=== PATIENT | female | born 1965 | race Caucasian/White ===

== ENCOUNTER → 2016-08-04 | Outpatient (CLI) | payer BC ==
[2016-08-04 12:32] LABS: Basophils % (A) 1 %; CH 30.5; CHCM 32.2; Eosinophils # (A) 0.1 k/uL (0-0.7); Eosinophils % (A) 1 %; HCT 46.9 % (34.0-46.0); HDW 2.51; HGB 14.9 gm/dL (11.4-16.0); Luc # (Auto) 0.18; Luc % (Auto) 2; Lymphocytes # (A) 1.2 k/uL (1.0-4.8); Lymphocytes % (A) 15 %; MCH 30.1 pg (25.0-35.0); MCHC 31.8 g/dL (31.0-37.0); MCV 94.4 fL (80.0-100.0); Mean Platelet Volume 7.6; Monocytes # (A) 0.4 k/uL (0-1.0); Monocytes % (A) 5 %; Neutrophils # (A) 6.3 k/uL (1.3-7.7); Neutrophils % (A) 77 %; RBC 4.96 m/uL (3.80-5.40); RDW 15.1 % (11.5-15.5); WBC 8.2 k/uL (3.8-10.6); WBC (Perox) 8.31
== END | disposition home or self-care (01) ==
LOC: LABPAT 12:15
PROVIDERS: ATTEND Obstetrics & Gynecology
DX: Z01.812 Encounter for preprocedural laboratory examination (principal)
CPT/HCPCS: 36415; 85025

== ENCOUNTER 2016-08-12 06:37 | Day surgery (SDC) | payer BC ==
[2016-08-09 11:45] VITALS: BMI 23.0
--- NOTE | 2016-08-11 20:19 | P.HPOB ---
History of Present Illness H&P Date: 08/11/16 Chief Complaint: Dysfunctional uterine bleeding This is a 45 y.o. female, 2, para 2, who presents for dilatation and curettage with hysteroscopy, and Novasure endometrial ablation due to dysfunctional uterine bleeding. She bled from mid-February until mid-May. She would bleed through 2 tampons in 45 minutes. Previously her menses were regular, but would last 7-8 days and heavier with clots over the last few years. Her pelvic ultrasound showed uterus measuring 13.7 x 5.7 x 6.8 cm with several fibroids, the largest of which was 3.4 cm on the left side. Endometrial thickness was 15 mm and she did have a 2.6 cm cyst on her left ovary. She would like definitive surgical treatment to control her bleeding. She is aware that the Novasure may not ablate her entire lining due to the size of her uterus. OB Hx: . History of 2 deliveries [employer] Hx: No history of STDs. Partner has a vasectomy. Social Hx: , but steady partner for years. Works in a [employer]. Review of Systems Constitutional: Reports fatigue Gastrointestinal: Reports heartburn Genitourinary: Reports dysmenorrhea, Reports menorrhagia Menstruation: Reports menses 8 or > days, Reports menses variable, Reports period heavy Neurological: Denies numbness, Denies weakness Psychiatric: Denies anxiety, Denies depression Past Medical History Past Medical History: GERD/Reflux Additional Past Medical History / Comment(s): ENVIRONMENTAL ALLERGIES, MENORRHAGIA WITH ANEMIA. History of Any Multi-Drug Resistant Organisms: None Reported Past Surgical History: Appendectomy, Section (x2) Past Anesthesia/Blood Transfusion Reactions: Postoperative Nausea & Vomiting ( PONV) Past Psychological History: No Psychological Hx Reported Smoking Status: Never smoker Past Alcohol Use History: Daily Additional Past Alcohol Use History / Comment(s): DRINKS 1-2 GLASSES OF WINE DAILY. Past Drug Use History: None Reported - Past Family History Father Family Medical History: Coronary Artery Disease (CAD) Additional Family Medical History / Comment(s): OPEN HEART SURGERY. Medications and Allergies Home Medications Medication Instructions Recorded Confirmed Type Gluc/Oscar-MSM#1/C/Jovanny/King/Bor 1 each PO DAILY 08/09/16 08/09/16 History [Glucosamine-Chondroitin Tablet] Ibuprofen [Motrin] 200 - 600 mg PO Q6HR PRN 08/09/16 08/09/16 History Iron (Unknown Dose) 1 tab PO BID 08/09/16 08/09/16 History Montelukast [Singulair] 10 mg PO HS 08/09/16 08/09/16 History Multivitamins, Thera [Multivitamin] 1 tab PO DAILY 08/09/16 08/09/16 History Omeprazole 20 mg PO DAILY 08/09/16 08/09/16 History Vitamin D (Unknown Dose) 1 tab PO DAILY 08/09/16 08/09/16 History Zyrtec(Unknown Dose) 1 tab PO DAILY 08/09/16 08/09/16 History Allergies Allergy/AdvReac Type Severity Reaction Status Date / Time benzoyl peroxide Allergy Unknown EYES Verified 08/09/16 11:28 SWOLLEN SHUT. Exam Osteopathic Statement: *. No significant issues noted on an osteopathic structural exam other than those noted in the History and Physical/Consult. HEENT: within normal limits Heart: regular rate and rhythm Lungs: clear to auscultation bilaterally Abdomen: soft, non-tender Pelvic: Uterus mid-position, sl. enlarged, nodular, non-tender with no palpable adnexal masses or tenderness Extremities: neg. Miguelito's. Assessment and Plan (1) Dysfunctional uterine bleeding Status: Acute Plan: Proceed with dilatation and curettage with hysteroscopy and Novasure endometrial ablation. I have discussed the risks, benefits, and alternative therapies for the above- mentioned procedure and for both sedation/anesthesia as well as necessary blood products administration, if indicated, as they pertain to this patient. The patient has indicated her understanding and acceptance of the risks and procedures discussed.
[~2016-08-12 06:37] MED LIST: DEXAMETHASONE SOD PHOSPHATE 10 MG/ML 1 ML VIAL IV ONE; HYDROmorphone 1 MG/ML 1 ML SYRINGE IVP PRN; LACTATED RINGERS 1,000 ML IV SCH; MIDAZOLAM 2 MG/2 ML VIAL IV PRN; ONDANSETRON 4 MG/2 ML VIAL IVP ONE; Pre Op ABX Message 1 EACH MISC MISCELLANE ONE; SCOPOLAMINE 1.5MG/72HR PATCH TRANSDERM ONE
[2016-08-12 06:57] VITALS: RESP 16
[2016-08-12] MEDS ORDERED: LIDOCAINE 1% 20 ML VIAL (10MG/ML) FOR IV START INTRADERMA ONE (06:58)
[2016-08-12] MEDS ORDERED: LIDOCAINE 1% INJ 10MG/ML (20 ML MDV) ONE (07:37)
[2016-08-12] MEDS ORDERED: PROPOFOL 10 MG/ML 20 ML VIAL IV ONE (07:37)
[2016-08-12] MEDS ORDERED: KETOROLAC 30 MG/ML 1 ML VIAL ONE (07:37)
[2016-08-12] MEDS ORDERED: MIDAZOLAM 2 MG/2 ML VIAL ONE (07:37)
[2016-08-12] MEDS ORDERED: fentaNYL (PF) 50 MCG/ML 2 ML AMP ONE (07:37)
[2016-08-12 08:11] VITALS: TEMP 97
[2016-08-12 09:01] VITALS: BP 154/83; PULSE 60
--- NOTE | 2016-08-12 14:08 | P.OP ---
Date of Procedure: 08/12/16 Preoperative Diagnosis: Dysfunctional uterine bleeding Postoperative Diagnosis: Same Procedure(s) Performed: Hysteroscopy, dilatation and curettage, Novasure endometrial ablation Anesthesia: NEENA Surgeon: Traci Sal Estimated Blood Loss (ml): 5 Pathology: other (endometrial curettings) Condition: stable Disposition: same day Indications for Procedure: This is a 45 y.o. female, 2, para 2, who presents for dilatation and curettage with hysteroscopy, and Novasure endometrial ablation due to dysfunctional uterine bleeding. She bled from mid-February until mid-May. She would bleed through 2 tampons in 45 minutes. Previously her menses were regular, but would last 7-8 days and heavier with clots over the last few years. Her pelvic ultrasound showed uterus measuring 13.7 x 5.7 x 6.8 cm with several fibroids, the largest of which was 3.4 cm on the left side. Endometrial thickness was 15 mm and she did have a 2.6 cm cyst on her left ovary. She would like definitive surgical treatment to control her bleeding. She is aware that the Novasure may not ablate her entire lining due to the size of her uterus. Operative Findings: Uterus mid-position with no adnexal masses. Upon hysteroscopy, a dyssynchronous pattern was noted. A moderate amount of uterine curettings were noted. Uterus is sounded to 13 cm. Cervix is sounded to 3 cm. Description of Procedure: The patient is taken to the operating room. She is placed in the dorsal lithotomy position after general anesthesia was given. She is prepped and draped in the normal sterile fashion. Bladder is drained with a catheter and then removed. Pelvic exam is performed under anesthesia. Uterus is found to be mid position with no adnexal masses. She is placed in slight Trendelenburg position. A right angle retractor is used to visualize the cervix. The anterior lip of the cervix is grasped with a single-tooth tenaculum. Cervix is sounded to 3 cm. Uterus is sounded to 13 cm. Cervix is gently dilated with Mensah dilators until a hysteroscope could be passed. Hysteroscopy is performed using normal saline. The above noted findings are noted. Next a polyp forceps is introduced. A minimal amount of tissue was obtained. Next medium-sized size sharp curette was placed. A moderate amount of endometrial curettings were obtained. Next NovaSure array was inserted into the endometrial cavity. Length was set at 6.5 cm and width was determined to be 4.5 cm. Next cavity assessment was completed and passed on the first try. Next NovaSure array was fired at 161 W for 105 seconds. Next the array was removed, inspected and then discarded. Next the hysteroscope was reinserted. Uniform charring was noted. Pictures were taken. Hysteroscope was removed. Single-tooth tenaculum was removed from the anterior lip of the cervix. Minimal bleeding was noted. All other instruments removed from the vagina. Sponge counts were correct. Patient is taken to recovery room in stable condition.
== END 2016-08-12 09:23 | disposition home or self-care (01) ==
LOC: OR 06:37
PROVIDERS: ATTEND Obstetrics & Gynecology
DX: N84.0 Polyp of corpus uteri (principal); N93.8 Other specified abnormal uterine and vaginal bleeding; D25.9 Leiomyoma of uterus, unspecified; N83.202 Unspecified ovarian cyst, left side; N92.0 Excessive and frequent menstruation with regular cycle; D64.9 Anemia, unspecified; J30.2 Other seasonal allergic rhinitis; K21.9 Gastro-esophageal reflux disease without esophagitis; Z79.1 Long term (current) use of non-steroidal anti-inflammatories (NSAID); Z79.899 Other long term (current) drug therapy; Z88.8 Allergy status to other drugs, medicaments and biological substances
CPT/HCPCS: 81025; 88305; 58563; J2250; J1100; J2405; J2001; J3010; J1885; J2704

== ENCOUNTER → 2018-02-21 | Outpatient (CLI) | payer BC ==
[2018-02-21 16:45] LABS: Basophils % (A) 1 %; Eosinophils # (A) 0.1 k/uL (0-0.7); Eosinophils % (A) 1 %; HGB 13.7 gm/dL (11.4-16.0); Lymphocytes # (A) 1.1 k/uL (1.0-4.8); Lymphocytes % (A) 23 %; MCH 28.1 pg (25.0-35.0); MCHC 31.1 g/dL (31.0-37.0); MCV 90.3 fL (80.0-100.0); Mean Platelet Volume 7.4; Monocytes # (A) 0.3 k/uL (0-1.0); Monocytes % (A) 6 %; Neutrophils # (A) 3.2 k/uL (1.3-7.7); Neutrophils % (A) 67 %; Platelet Count 231 k/uL (150-450); RBC 4.87 m/uL (3.80-5.40); RDW 14.4 % (11.5-15.5); WBC 4.8 k/uL (3.8-10.6)
[2018-02-22 04:53] LABS: Gliadin AB IgA, Unit 1.8 U/mL
[2018-02-22 05:18] LABS: Codfish IgE <0.10 kU/L; Peanut IgE <0.10 kU/L; Soybean IgE <0.10 kU/L; Walnut IgE (Food) <0.10 kU/L
[2018-02-22 05:19] LABS: Egg White IgE <0.10 kU/L
--- NOTE | 2018-02-22 09:06 | XR ---
EXAMINATION TYPE: XR chest 2V DATE OF EXAM: 02/21/2018 COMPARISON: 08/11/2015 TECHNIQUE: PA and lateral views submitted. HISTORY: Cough FINDINGS: The lungs are clear and there is no pneumothorax, pleural effusion, or focal pneumonia. Hypertrophic change of the spine noted. IMPRESSION: 1. No acute process.
[2018-02-22 11:33] LABS: Almond IgE <0.35 kU/L (<0.35); Almond IgE Class CLASS 0; Hazelnut IgE <0.35 kU/L (<0.35); Hazelnut IgE Class CLASS 0; Pecan IgE <0.35 kU/L (<0.35); Pecan IgE Class CLASS 0
[2018-02-22 11:35] LABS: Pistachio IgE Class CLASS 0; Tuna IgE <0.35 kU/L (<0.35); Tuna IgE Class CLASS 0
[2018-02-22 11:36] LABS: Salmon IgE <0.35 kU/L (<0.35); Salmon IgE Class CLASS 0
== END | disposition home or self-care (01) ==
LOC: RADXRMAIN 16:03
PROVIDERS: ATTEND Allergy & Immunology
DX: K21.9 Gastro-esophageal reflux disease without esophagitis (principal); R05 Cough; Z91.018 Allergy to other foods
CPT/HCPCS: 71046; 82784; 83516; 85025; 86003

== ENCOUNTER 2018-10-24 08:34 | Day surgery (SDC) | payer BC ==
[2018-10-19 10:07] VITALS: BMI 23.0
--- NOTE | 2018-10-24 07:57 | P.GSHP ---
History of Present Illness H&P Date: 10/24/18 CHIEF COMPLAINT: Colon screen HISTORY OF PRESENT ILLNESS: The patient is a 53-year-old female who presents for colon screen. Lower endoscopy was offered for further evaluation and management. PAST MEDICAL HISTORY: Please see list. PAST SURGICAL HISTORY: Please see list. MEDICATIONS: Please see list. ALLERGIES: Please see list. SOCIAL HISTORY: No illicit drug use FAMILY HISTORY: No reports of Crohn disease or ulcerative colitis. REVIEW OF ORGAN SYSTEMS: CONSTITUTIONAL: No reports of fevers or chills. PHYSICAL EXAM: VITAL SIGNS: Stable GENERAL: Well-developed pleasant in no acute distress. HEENT: No scleral icterus. Extraocular movements grossly intact. Moist buccal mucosa. NECK: Supple without lymphadenopathy. CHEST: Unlabored respirations. Equal bilateral excursions. CARDIOVASCULAR: Regular rate and rhythm. Distal 2+ pulses. ABDOMEN: Soft, nontender, nondistended. MUSCULOSKELETAL: No clubbing, cyanosis, or edema. ASSESSMENT: 1. Colon screen. PLAN: 1. Recommend proceeding with a lower endoscopy Past Medical History Past Medical History: GERD/Reflux, Hypertension Additional Past Medical History / Comment(s): SEASONAL ALLERGIES History of Any Multi-Drug Resistant Organisms: None Reported Past Surgical History: Appendectomy, Section, Uterine Ablation Additional Past Surgical History / Comment(s): C-SEC X 2 Past Anesthesia/Blood Transfusion Reactions: Postoperative Nausea & Vomiting (PONV) Smoking Status: Never smoker - Past Family History Mother Family Medical History: No Reported History Medications and Allergies Home Medications Medication Instructions Recorded Confirmed Type Montelukast [Singulair] 10 mg PO HS 08/09/16 10/19/18 History Omeprazole 20 mg PO BID 08/09/16 10/19/18 History Cholecalciferol [Vitamin D3 (25 2,000 unit PO DAILY 10/19/18 10/19/18 History Mcg = 1000 Iu)] Hydrochlorothiazide 25 mg PO DAILY 10/19/18 10/19/18 History L.acidoph,Paracasei, B.lactis 1 each PO DAILY 10/19/18 10/19/18 History [Probiotic] Loratadine [Claritin] 10 mg PO DAILY 10/19/18 10/19/18 History Ranitidine HCl 300 mg PO HS 10/19/18 10/19/18 History Allergies Allergy/AdvReac Type Severity Reaction Status Date / Time benzoyl peroxide Allergy Unknown EYES Verified 10/19/18 09:51 SWOLLEN SHUT. corn Allergy Abdominal Verified 10/19/18 09:51 Pain
[~2018-10-24 08:34] MED LIST changes: -DEXAMETHASONE SOD PHOSPHATE 10 MG/ML 1 ML VIAL IV ONE; -HYDROmorphone 1 MG/ML 1 ML SYRINGE IVP PRN; +LIDOCAINE 1% 20 ML VIAL (10MG/ML) FOR IV START INTRADERMA PRN; -MIDAZOLAM 2 MG/2 ML VIAL IV PRN; -ONDANSETRON 4 MG/2 ML VIAL IVP ONE; -Pre Op ABX Message 1 EACH MISC MISCELLANE ONE; -SCOPOLAMINE 1.5MG/72HR PATCH TRANSDERM ONE
[2018-10-24 08:55] VITALS: RESP 16; TEMP 98
[2018-10-24] MEDS ORDERED: PROPOFOL 10 MG/ML 20 ML VIAL IV ONE (09:36)
--- NOTE | 2018-10-24 10:03 | P.PCN ---
Description of Procedure: PREOPERATIVE DIAGNOSIS: Colonoscopy screening, initial POSTOPERATIVE DIAGNOSIS: Colonoscopy screening, initial OPERATION: Colonoscopy to the ileocecal valve and appendiceal orifice. SURGEON: Mya Zapien MD. ANESTHESIA: MAC. INDICATIONS: The patient is a 53-year-old female who presents for colonoscopy screening. Benefits and risks were described and informed consent was obtained. DESCRIPTION OF PROCEDURE: The patient had undergone Suprep. She had been brought into the operating room and laid in the left lateral decubitus position. After adequate intravenous sedation, the rectum was examined with 2% lidocaine jelly. No external hemorrhoids were encountered. The rectal tone was within normal limits. No lesions were palpated in the rectal vault. An Olympus colonoscope was advanced until the ileocecal valve and appendiceal orifice were clearly viewed. The prep was excellent with clear visualization of the mucosal folds. The scope was removed with visualization of each mucosal fold. No scattered diverticulosis was encountered. No colonic polyps were found. No evidence of focal colitis was found. Retroflexion of the scope demonstrated no internal hemorrhoids. The colon was desufflated. The patient had tolerated the procedure well. Withdrawal time was over 6 minutes. FINDINGS: Aronchick preparation quality scale 1 (1-5) No internal hemorrhoids No external prolapsed hemorrhoids. No arteriovenous malformations. No adenomatous polyps. No focal colitis. RECOMMENDATIONS: Lower endoscopy in 10 years, 2028 Plan - Discharge Summary Discharge Rx Participant: No New Discharge Prescriptions: No Action Omeprazole 20 mg PO BID Montelukast [Singulair] 10 mg PO HS Ranitidine HCl 300 mg PO HS Cholecalciferol [Vitamin D3 (25 Mcg = 1000 Iu)] 2,000 unit PO DAILY L.acidoph,Paracasei, B.lactis [Probiotic] 1 each PO DAILY Loratadine [Claritin] 10 mg PO DAILY Hydrochlorothiazide 25 mg PO DAILY Discharge Medication List Montelukast [Singulair] 10 mg PO HS 08/09/16 [History] Omeprazole 20 mg PO BID 08/09/16 [History] Cholecalciferol [Vitamin D3 (25 Mcg = 1000 Iu)] 2,000 unit PO DAILY 10/19/18 [History] Hydrochlorothiazide 25 mg PO DAILY 10/19/18 [History] L.acidoph,Paracasei, B.lactis [Probiotic] 1 each PO DAILY 10/19/18 [History] Loratadine [Claritin] 10 mg PO DAILY 10/19/18 [History] Ranitidine HCl 300 mg PO HS 10/19/18 [History] Follow up Appointment(s)/Referral(s): Mya Zapien MD [STAFF PHYSICIAN] - As Needed Patient Instructions/Handouts: *[facility] - (Anesthesia) Endoscopy Discharge Instructions, Colonoscopy (GEN) Activity/Diet/Wound Care/Special Instructions: Repeat colonoscopy in 10 years2028 Discharge Disposition: HOME SELF-CARE
[2018-10-24 10:05] VITALS: PULSE 68
[2018-10-24 10:34] VITALS: BP 143/91
== END 2018-10-24 10:47 | disposition home or self-care (01) ==
LOC: ORWHC2ENDO 08:34
PROVIDERS: ATTEND Surgery Plastic and Reconstructive Surgery
DX: Z12.11 Encounter for screening for malignant neoplasm of colon (principal); K21.9 Gastro-esophageal reflux disease without esophagitis; I10 Essential (primary) hypertension; Z90.49 Acquired absence of other specified parts of digestive tract; J30.2 Other seasonal allergic rhinitis; Z79.899 Other long term (current) drug therapy; Z88.8 Allergy status to other drugs, medicaments and biological substances; Z91.018 Allergy to other foods
CPT/HCPCS: 81025; J2704; G0121

== ENCOUNTER → 2018-11-08 | Outpatient (CLI) | payer BC ==
--- NOTE | 2018-11-09 10:33 | MM ---
Reason for exam: screening (asymptomatic). Last mammogram was performed 3 years and 7 months ago. History: Family history of breast cancer in grandmother at age 55. Physical Findings: A clinical breast exam by your physician is recommended on an annual basis and results should be correlated with mammographic findings. MG 3D Screening Mammo W/Cad Bilateral CC and MLO view(s) were taken. Prior study comparison: April 16, 2015, bilateral MG screening mammo w CAD. January 13, 2006, bilateral screening mammogram w/CAD. The breast tissue is extremely dense which could obscure a lesion on mammography. No suspicious abnormality. No significant changes when compared with prior studies. ASSESSMENT: Negative, BI-RAD 1 RECOMMENDATION: Routine screening mammogram of both breasts in 1 year.
== END | disposition home or self-care (01) ==
LOC: RADMAMWWP 10:11
PROVIDERS: ATTEND Family Medicine
DX: Z12.31 Encounter for screening mammogram for malignant neoplasm of breast (principal)
CPT/HCPCS: 77063; 77067

== ENCOUNTER → 2018-11-15 | Outpatient (CLI) | payer BC ==
--- NOTE | 2018-11-15 12:03 | US ---
EXAMINATION TYPE: US pelvic complete DATE OF EXAM: 11/15/2018 COMPARISON: NONE CLINICAL HISTORY: 53-year-old female R19.00 Intra-abdominal Pelvic Swelling. Intermittent left pelv ic pain, 2, para 2, history of 2 c-sections. TECHNIQUE: Transabdominal sonographic images of the pelvis were acquired. Transvaginal sonographic images were medically necessary to better assess the following anatomy: ovaries and endometrium Date of LMP: 2nd week in September 2018 FINDINGS: EXAM MEASUREMENTS: Uterus: 11.2 x 6.3 x 6.9 cm Endometrial Stripe: 0.8 cm Right Ovary: 3.1 x 2.1 x 2.7 cm Left Ovary: 3.7 x 2.2 x 2.0 cm 1. Uterus: enlarged, heterogeneous, 5.0 x 4.5 x 4.3cm and 3.2 x 2.5 x 3.1cm hypoechoic lesions. There is fluid within the cervical canal with 1.2 x 0.7 x 1.2cm and 0.9 x 0.4 x 0.7cm solid and vascu lar structures seen within 2. Endometrium: limited visualization 3. Right Ovary: 1.9 x 1.3 x 1.6cm cystic area 4. Left Ovary: 2.1 x 1.1 x 1.4cm cystic area 5. Bilateral Adnexa: wnl 6. Posterior cul-de-sac: wnl IMPRESSION: 1. Bulky fibroid uterus with fibroids measuring up to 5.0 cm and 3.2 cm. 2. Fluid in the cervical canal with 2 solid and vascular lesions within the endocervical canal measur ing 1.2 x 1.2 cm and 9 x 7 mm. Small prolapsed pedunculated fibroids are possible. Correlate with Pap smear and direct visualization to exclude neoplasm/cervical cancer. 3. Follicular change in both ovaries.
== END | disposition home or self-care (01) ==
LOC: RADUSWWP 10:05
PROVIDERS: ATTEND Family Medicine
DX: D25.9 Leiomyoma of uterus, unspecified (principal); N88.8 Other specified noninflammatory disorders of cervix uteri
CPT/HCPCS: 76830; 76856

== ENCOUNTER → 2022-02-15 | Outpatient (CLI) | payer BC ==
--- NOTE | 2022-02-16 16:56 | MM ---
Reason for Exam: Screening (asymptomatic). Last mammogram was performed 3 year(s) and 3 month(s) ago. Patient History: Menarche at age 15. First Full-Term at age 27. Maternal grandmother had breast cancer, age 55. Risk Values: Hanny 5 year model risk: 1.3%. NCI Lifetime model risk: 9.3%. Prior Study Comparison: 01/13/2006 Bilateral Screening Mammogram, [facility]. 04/16/2015 Bilateral Screening Mammogram, [facility]. 11/08/2018 Bilateral Screening Mammogram, [facility]. Tissue Density: The breast tissue is heterogeneously dense. This may lower the sensitivity of mammography. Findings: Analyzed By CAD. Pattern appears stable. No suspicious groups of microcalcifications, spiculated or lobular masses, architectural distortion or other secondary signs of malignancy are mammographically apparent. Overall Assessment: Benign, BI-RAD 2 Management: Screening Mammogram of both breasts in 1 year. A negative mammogram report should not preclude additional follow up of suspicious palpable abnormalities. Patient should continue monthly self breast exam. A clinical breast exam by your physician is recommended on an annual basis and results should be correlated with mammographic findings. Electronically signed and approved by: Wilber Coffman D.O. Radiologis
== END | disposition home or self-care (01) ==
LOC: RADMAMWWP 15:09
PROVIDERS: ATTEND Family Medicine
DX: Z12.31 Encounter for screening mammogram for malignant neoplasm of breast (principal); Z80.3 Family history of malignant neoplasm of breast
CPT/HCPCS: 77063; 77067

== ENCOUNTER 2022-10-10 05:47 | Inpatient (IN) | payer BC ==
[2022-10-06 08:33] VITALS: BMI 24.7
--- NOTE | 2022-10-09 08:15 | P.HPOB ---
History of Present Illness H&P Date: 10/09/22 Chief Complaint: Dysfunctional uterine bleeding This is a 57 y.o. female, 2, para 2, with complaints of prolonged heavy bleeding since May 2022. She has tried Provera which took a few weeks to slow her bleeding, but it has now stopped. She does have simple endometrial hyperplasia diagnosed on endometrial biopsy in June of 2022. This was also noted on D&C specimen in 2017 at the time of her endometrial ablation. Her pelvic ultrasound showed uterus measuring 9.7 x 8.5 x 7.6 cm with probable fibroid in posterior uterus measuring up to 4.3 cm. Her left ovary had a 2.8 cm simple cyst. Patient has history of previous endometrial ablation and had no period prior to this since 08/2021. Due to the continued dysfunctional bleeding and simple hyperplasia, the decision is made to proceed with total abdominal hysterectomy with bilateral salpingooophorectomy. OB Hx: . 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 Partner has vasectomy. Social Hx: . Partner for many years. Runs a [employer]. Review of Systems Constitutional: Denies chills, Denies fever Eyes: denies blurred vision, denies pain Ears, nose, mouth and throat: Denies headache, Denies sore throat Cardiovascular: Denies chest pain, Denies shortness of breath Respiratory: Denies cough Gastrointestinal: Reports heartburn, Denies abdominal pain, Denies diarrhea, Denies nausea, Denies vomiting Genitourinary: Reports dysmenorrhea, Reports menorrhagia, Reports pelvic pain, Reports stress incontinence Menstruation: Reports menses 8 or > days, Reports period heavy Musculoskeletal: Reports neck stiffness Integumentary: Denies pruritus, Denies rash Neurological: Denies numbness, Denies weakness Psychiatric: Reports anxiety, Denies depression Endocrine: Reports fatigue, Denies weight change Past Medical History Past Medical History: GERD/Reflux, Hypertension Additional Past Medical History / Comment(s): SEASONAL ALLERGIES. History of Any Multi-Drug Resistant Organisms: None Reported Past Surgical History: Appendectomy, Section, Uterine Ablation Additional Past Surgical History / Comment(s): SECTION X2. D&C Past Anesthesia/Blood Transfusion Reactions: Postoperative Nausea & Vomiting (PONV) Additional Past Anesthesia/Blood Transfusion Reaction / Comment(s): PONV after appendectomy only. Past Psychological History: Anxiety Smoking Status: Never smoker Past Alcohol Use History: Daily Additional Past Alcohol Use History / Comment(s): DRINKS ONE GLASS OF WINE DAILY. Past Drug Use History: None Reported - Past Family History Mother Family Medical History: No Reported History Father Family Medical History: Coronary Artery Disease (CAD), Hypertension Medications and Allergies Home Medications Medication Instructions Recorded Confirmed Type Montelukast [Singulair] 10 mg PO HS 08/09/16 10/24/18 History Omeprazole 20 mg PO BID 08/09/16 10/24/18 History Cholecalciferol [Vitamin D3 (25 2,000 unit PO DAILY 10/19/18 10/24/18 History Mcg = 1000 Iu)] L.acidoph,Paracasei, B.lactis 1 each PO DAILY 10/19/18 10/24/18 History [Probiotic] Loratadine [Claritin] 10 mg PO DAILY 10/19/18 10/24/18 History Albuterol Inhaler [Ventolin Hfa 1 - 2 puff INHALATION Q6H PRN 10/09/22 10/09/22 History Inhaler] Cetirizine HCl [Zyrtec] 10 mg PO DAILY 10/09/22 10/09/22 History Fluticasone Nasal [place] [Flonase 1 spray EA NOSTRIL DAILY 10/09/22 10/09/22 History Nasal [place]] Losartan/Hydrochlorothiazide 1 tab PO 10/09/22 History [Losartan-Hctz 50-12.5 mg Tab] medroxyPROGESTERone [Provera] DAILY 10/09/22 History Allergies Allergy/AdvReac Type Severity Reaction Status Date / Time benzoyl peroxide Allergy Unknown EYES Verified 10/06/22 08:17 SWOLLEN SHUT. corn Allergy Abdominal Verified 10/06/22 08:17 Pain Exam Osteopathic Statement: *. No significant issues noted on an osteopathic structural exam other than those noted in the History and Physical/Consult. HEENT: within normal limits Heart: regular rate and rhythm Lungs: clear to auscultation Abdomen: soft, non-tender Pelvic: uterus mid-position, slightly bulky and enlarged with palpable posterior fibroid, non-tender, no adnexal masses palpated Extremities: negative Miguelito's Assessment and Plan (1) Simple endometrial hyperplasia without atypia Status: Acute Code(s): N85.01 - BENIGN ENDOMETRIAL HYPERPLASIA SNOMED Code(s): 483613816 (2) Dysfunctional uterine bleeding Status: Acute Code(s): N93.8 - OTHER SPECIFIED ABNORMAL UTERINE AND VAGINAL BLEEDING SNOMED Code(s): 82020552167667 Plan: Proceed with total abdominal hysterectomy with bilateral salpingooophorectomy. I have discussed the risks, benefits, and alternative therapies for the above- mentioned procedure and for both sedation/anesthesia as well as necessary blood products administration, if indicated, as they pertain to this patient. The patient has indicated her understanding and acceptance of the risks and procedures discussed.
[2022-10-10] MEDS ORDERED: LIDOCAINE 1% (10MG/ML) FOR IV START INTRADERMA ONE (06:35)
[2022-10-10] MEDS ORDERED: LACTATED RINGERS 1,000 ML IV ONE (06:35)
[2022-10-10] MEDS ORDERED: DEXAMETHASONE SOD PHOSPHATE 4 MG/ML 1 ML VIAL IV ONE (06:45)
[2022-10-10] MEDS ORDERED: ONDANSETRON 4 MG/2 ML VIAL ONE (06:46)
[2022-10-10 06:51] LABS: Anisocytosis Slight; Basophils % (A) 1 %; Eosinophils # (A) 0.2 k/uL (0-0.7); Eosinophils % (A) 3 %; HCT 29.1 % (34.0-46.0); HGB 8.3 gm/dL (11.4-16.0); Hypochromasia Marked; Lymphocytes # (A) 1.4 k/uL (1.0-4.8); Lymphocytes % (A) 23 %; MCHC 28.6 g/dL (31.0-37.0); MCV 66.5 fL (80.0-100.0); Mean Platelet Volume 6.9; Microcytosis Marked; Monocytes # (A) 0.3 k/uL (0-1.0); Monocytes % (A) 4 %; Neutrophils # (A) 4.1 k/uL (1.3-7.7); Neutrophils % (A) 66 %; Platelet Count 334 k/uL (150-450); Poikilocytosis Slight; RBC 4.37 m/uL (3.80-5.40); WBC 6.2 k/uL (3.8-10.6)
[2022-10-10] MEDS ORDERED: fentaNYL (PF) 50 MCG/ML 2 ML AMP IV ONE (07:06)
[2022-10-10] MEDS ORDERED: MIDAZOLAM 2 MG/2 ML VIAL IV ONE (07:06)
[2022-10-10] MEDS ORDERED: NEOSTIGMINE 1 MG/ML 10 ML VIAL ONE (07:19)
[2022-10-10] MEDS ORDERED: KETOROLAC 30 MG/ML 1 ML VIAL ONE (07:19)
[2022-10-10] MEDS ORDERED: LIDOCAINE 2% INJ 20 MG/ML (2 ML VIAL) ONE (07:19)
[2022-10-10] MEDS ORDERED: ROCURONIUM 10 MG/ML (5 ML VIAL) IV ONE (07:19)
[2022-10-10] MEDS ORDERED: PROPOFOL 10 MG/ML 20 ML VIAL IV ONE (07:19)
[2022-10-10] MEDS ORDERED: fentaNYL (PF) 50 MCG/ML 2 ML AMP ONE (07:19)
[2022-10-10] MEDS ORDERED: MORPHINE SULFATE (PF) 0.3 MG/0.3 ML SYR ONE (07:19)
[2022-10-10] MEDS ORDERED: ACETAMINOPHEN IV (For NPO) 1,000 MG/100 ML VIAL ONE (07:19)
[2022-10-10] MEDS ORDERED: GLYCOPYRROLATE 0.2 MG/ML 2 ML VIAL ONE (07:19)
[2022-10-10] MEDS ORDERED: diphenhydrAMINE 50 MG/ML 1 ML VIAL ONE (07:19)
[2022-10-10] MEDS ORDERED: SUCCINYLCHOLINE CHLORIDE 200 MG/10 ML VIAL IV ONE (07:19)
[2022-10-10] MEDS ORDERED: NALOXONE 0.4 MG/ML 1 ML VIAL IV PRN (08:13)
[2022-10-10] MEDS ORDERED: ONDANSETRON 4 MG/2 ML VIAL IVP PRN (08:13)
[2022-10-10] MEDS ORDERED: diphenhydrAMINE 50 MG/ML 1 ML VIAL IVP PRN ×2 (08:13→10:44)
[2022-10-10] MEDS ORDERED: MORPHINE SULFATE 2 MG/ML SYRINGE IVP PRN (08:13)
--- NOTE | 2022-10-10 08:16 | P.ANPRN ---
Procedure Note - Anesthesia - Epidural/Spinal Spinal Time Out Performed: Yes Date of Procedure: 10/10/22 Procedure Start Time: 07:06 Procedure Stop Time: 07:11 Location of Patient: PreOp Indication: Acute Post-Operative Pain Sedation Type: Sedate with meaningful contact maintained Preparation: Sterile Prep Position: Sitting Catheter: None Needle Guage: 25 Injectate: Duramorph 300 mcg, fentanyl 25mcg Narrative: spinal placed at L3- L4 Blood Aspirated: No Pain Paresthesia on Injection Noted: No Events: Uneventful and Well Tolerated
[2022-10-10] MEDS ORDERED: ALBUTEROL NEBULIZED 2.5 MG/3 ML INHALATION PRN (08:42)
--- NOTE | 2022-10-10 08:47 | P.OP ---
Date of Procedure: 10/10/22 Preoperative Diagnosis: 1. Dysfunctional uterine bleeding. 2. Simple endometrial hyperplasia. 3. Uterine fibroids. Postoperative Diagnosis: Same Procedure(s) Performed: Total abdominal hysterectomy with bilateral salpingo-oophorectomy Anesthesia: GETA, spinal (Duramorph) Surgeon: Traci Sal Head Silverman #1: Rl Steen Estimated Blood Loss (ml): 25 Pathology: other (Uterus with cervix, bilateral tubes and ovaries) Condition: stable Disposition: floor Indications for Procedure: This is a 57 y.o. female, 2, para 2, with complaints of prolonged heavy bleeding since May 2022. She has tried Provera which took a few weeks to slow her bleeding, but it has now stopped. She does have simple endometrial hyperplasia diagnosed on endometrial biopsy in June of 2022. This was also noted on D&C specimen in 2016 at the time of her endometrial ablation. Her pelvic ultrasound showed uterus measuring 9.7 x 8.5 x 7.6 cm with probable fibroid in posterior uterus measuring up to 4.3 cm. Her left ovary had a 2.8 cm simple cyst. Patient has history of previous endometrial ablation and had no period prior to this since 08/2021. Due to the continued dysfunctional bleeding and simple hyperplasia, the decision is made to proceed with total abdominal hysterectomy with bilateral salpingooophorectomy. Operative Findings: Uterus is slightly bulky with a large posterior fibroid towards the left side. Both ovaries appeared atrophic. Both tubes appeared normal. Description of Procedure: The patient is taken to the operating room where she is placed in the dorsal supine position. She is prepped and draped in the normal sterile fashion including Sanchez catheter insertion and vaginal prep. A Pfannenstiel skin incision is made with a scalpel through the previous laparotomy scar. A second knife was used to carry the incision down to the underlying layer of fascia. The fascia was nicked in the midline with a scalpel and then extended laterally bilaterally with Carrasquillo scissors. The superior aspect of the fascial incision was grasped with Ranjan clamps, elevated off the underlying rectus muscle in the midline and then cut with Carrasquillo scissors. The omentum was adherent to the an terior abdominal wall and was carefully taken down with taking down the muscle. The inferior aspect of the fascial incision was grasped with Ranjan clamps, elevated off the underlying rectus muscle in the midline and then cut with Carrasquillo scissors. The remainder the peritoneum is extended superiorly and in fairly with Metzenbaum scissors. Next the Gio retractor is placed in the bladder blade was inserted. The bowels were packed with a 3 yard laparotomy sponge. Next the uterus is brought up incision and the corneal regions are grasped with Shelby clamps on both sides. The infundibulopelvic ligament was clamped on either side with a Virgilio clamp, cut with Carrasquillo scissors, and sutured with 0 Vicryl suture in Virgilio transfixion stitches. The remaining uterine ovarian ligament and round ligament was clamped on either side with a Virgilio clamp, cut with Carrasquillo scissors, and sutured with 0 Vicryl suture in Virgilio transfixion stitches. The vesicouterine peritoneum was sharply dissected away from the bladder with Metzenbaum scissors and pushed inferiorly. The uterine arteries are clamped on either side with a Virgilio clamp. The uterine arteries are then cut with Carrasquillo scissors, and sutured with 0 Vicryl suture in Virgilio transfixion stitches. Next the cardinal ligaments were clamped on either side with Virgilio clamp, cut with Carrasquillo scissors, and sutured with 0 Vicryl suture in Virgilio t ransfixion stitches. The uterosacral ligaments are clamped on either side with Virgilio clamps, cut with Carrasquillo scissors, and sutured with 0 Vicryl suture in Virgilio transfixion stitches on either side. The edges of the vaginal cuff were clamped on either side with a Virgilio clamp, cut with Carrasquillo scissors, and sutured with 0 Vicryl suture in Virgilio transfixion stitches and held on either side. The vaginal mucosa was then cut just below the level of the cervix and the specimen is removed from the field. The edges of the vaginal cuff were held with Ranjan clamps. Next the previously held corners of each side of the vaginal cuff were then whipstitched along the connective tissue on either side and brought through the corner of the cuff and tied. Next the vaginal cuff was sutured with 0 Vicryl suture in a running locked fashion. Good hemostasis was noted. Copious irrigation is carried out with warm saline. Excellent hemostasis is noted. All sponges are removed from the abdomen and sponge counts are correct. The peritoneum is then closed with 0 Vicryl suture in a running fashion. The muscle was then reapproximated with 0 Vicryl suture in interrupted fashion. The fascia layer is then closed with 0 PDS suture in a running fashion with the knots buried on either side and in the midline. Next the subcutaneous tissues closed with 2-0 Vicryl suture in a running fashion. The skin is closed with georgi. All sponge and needle counts are correct and the patient is taken to recovery room in stable condition.
[2022-10-10] MEDS ORDERED: ZOLPIDEM 5 MG TAB PO PRN (10:44)
[2022-10-10] MEDS ORDERED: IBUPROFEN 600 MG TAB PO PRN (10:44)
[2022-10-10] MEDS ORDERED: SIMETHICONE 80 MG CHEWABLE PO PRN (10:44)
[2022-10-10] MEDS: FLUTICASONE 50MCG/SPRAY NASAL 16GM EA NOSTRIL SCH (10:46)
[2022-10-10] MEDS: LORATADINE 10 MG TAB PO SCH (10:46)
[2022-10-10] MEDS: SENNOSIDES-DOCUSATE SODIUM 1 EACH TAB PO SCH ×2 (10:47→20:14)
[2022-10-10] MEDS: LACTATED RINGERS 1,000 ML IV SCH ×2 (10:47→23:20)
[2022-10-10] MEDS ORDERED: ACETAMINOPHEN IV (For NPO) 1,000 MG in EMPTY BAG 1 BAG IVPB ONE (11:00)
[2022-10-10] MEDS: KETOROLAC 15 MG/ML 1 ML VIAL IVP PRN ×2 (14:56→23:19)
[2022-10-10] MEDS: PANTOPRAZOLE 40 MG TABLET PO SCH (18:01)
[2022-10-11] MEDS: KETOROLAC 15 MG/ML 1 ML VIAL IVP PRN ×2 (06:20→19:55)
[2022-10-11] MEDS ORDERED: ACETAMINOPHEN TAB 325 MG TAB PO PRN (07:41)
[2022-10-11 08:02] LABS: Anisocytosis Slight; Basophils % (A) 0 %; Eosinophils % (A) 0 %; HCT 22.7 % (34.0-46.0); Hypochromasia Marked; Lymphocytes # (A) 0.6 k/uL (1.0-4.8); Lymphocytes % (A) 8 %; MCH 19.4 pg (25.0-35.0); MCHC 29.1 g/dL (31.0-37.0); MCV 66.4 fL (80.0-100.0); Mean Platelet Volume 8.9; Microcytosis Marked; Monocytes # (A) 0.3 k/uL (0-1.0); Monocytes % (A) 4 %; Neutrophils # (A) 6.7 k/uL (1.3-7.7); Neutrophils % (A) 87 %; Platelet Count 245 k/uL (150-450); RBC 3.42 m/uL (3.80-5.40); RDW 17.3 % (11.5-15.5); WBC 7.7 k/uL (3.8-10.6)
[2022-10-11 08:20] LABS: HGB 6.6 gm/dL (11.4-16.0)
--- NOTE | 2022-10-11 08:58 | P.PN ---
Subjective Progress Note Date: 10/11/22 Principal diagnosis: Status post ROSALINA/BSO postoperative day #1 Patient was doing well as night and ambulating. This morning she does feel little more winded and her pulse ox dropped to the 80s on room air. It is up into the 90s on O2 nasal cannula. Patient did have some nausea and vomiting this morning. She denies any vaginal bleeding. She has urinated yet since her Sanchez was removed this morning. Objective - Vital Signs Vital signs: Vital Signs Temp 98.7 F 10/11/22 08:25 Pulse 82 10/11/22 08:25 Resp 16 10/11/22 08:25 BP 114/70 10/11/22 08:25 Pulse Ox 3 L 10/11/22 08:25 FiO2 Intake & Output 10/10/22 10/11/22 10/11/22 18:59 06:59 18:59 Intake Total 350 960 Output Total 395 1195 250 Balance -45 -235 -250 Weight 66.8 kg Intake: IV 350 Oral 960 Output: Urine 270 1095 Uretheral (Sanchez) 175 450 Emesis 100 100 250 Estimated Blood Loss 25 Other: Voiding Method Indwelling Catheter - Constitutional General appearance: Present: no acute distress - Respiratory Respiratory: bilateral: CTA - Cardiovascular Rhythm: regular - Gastrointestinal Gastrointestinal Comment(s): Incision clean dry and intact with georgi in place. General gastrointestinal: Present: decreased bowel sounds, soft. Absent: tenderness - Labs CBC & Chem 7: 10/11/22 07:47 Labs: Abnormal Lab Results - Last 24 Hours (Table) 10/11/22 Range/Units 07:47 RBC 3.42 L (3.80-5.40) m/uL Hgb 6.6 L* D (11.4-16.0) gm/dL Hct 22.7 L (34.0-46.0) % MCV 66.4 L (80.0-100.0) fL MCH 19.4 L (25.0-35.0) pg MCHC 29.1 L (31.0-37.0) g/dL RDW 17.3 H (11.5-15.5) % Lymphocytes # 0.6 L (1.0-4.8) k/uL Assessment and Plan Assessment: Status post total abdominal hysterectomy and bilateral salpingo-oophorectomy postoperative day #1 Symptomatic postop anemia (1) Simple endometrial hyperplasia without atypia Current Visit: No Status: Acute Code(s): N85.01 - BENIGN ENDOMETRIAL HYPERPLASIA SNOMED Code(s): 796434873 (2) Dysfunctional uterine bleeding Current Visit: No Status: Acute Code(s): N93.8 - OTHER SPECIFIED ABNORMAL UTERINE AND VAGINAL BLEEDING SNOMED Code(s): 68373245878222 Plan: I had a long discussion with the patient regarding her symptoms and possible blood transfusion. She is amenable to 1 unit of packed red blood cells. We'll transfuse 1 unit of blood this morning and continue to observe closely. Ambulate as tolerated. Continues clear liquids now.
--- NOTE | 2022-10-11 09:38 | P.PN ---
Progress Note - Text Progress Note Date: 10/11/22 (0651) Anesthesia Postop day 1 Subjective: Status Post total abdominal hysterectomy with Duramorph. Patient seen and examined. Doing well without complaint. VAS 1 out of 10 No nausea or vomiting. Mild pruritus tolerable.. Afebrile. Gross lower extremity strength intact. . Without apparent anesthetic complications. Objective: Vital signs reviewed Heart: Regular Rate Lungs: Good chest excursion Abdomen: Appears nondistended Assessment: Status post with Duramorph postop day 1 Plan: Continue current care with your medical management.
[2022-10-11] MEDS: FLUTICASONE 50MCG/SPRAY NASAL 16GM EA NOSTRIL SCH (13:36)
[2022-10-11] MEDS: LORATADINE 10 MG TAB PO SCH (13:36)
[2022-10-11] MEDS: PANTOPRAZOLE 40 MG TABLET PO SCH ×2 (13:36→17:20)
[2022-10-11] MEDS: ONDANSETRON 4 MG/2 ML VIAL IVP PRN (13:37)
[2022-10-11] MEDS: SENNOSIDES-DOCUSATE SODIUM 1 EACH TAB PO SCH ×2 (14:41→22:33)
[2022-10-11] MEDS: METOCLOPRAMIDE 5 MG/ML 2 ML VIAL IVP PRN ×2 (14:53→23:31)
[2022-10-11] MEDS: LOSARTAN-HCTZ 50-12.5 MG 1 EACH TAB PO SCH ×2 (17:20→20:10)
[2022-10-11 18:12] LABS: Anisocytosis Slight; Basophils % (A) 0 %; Eosinophils % (A) 0 %; HCT 27.8 % (34.0-46.0); Hypochromasia Marked; Lymphocytes # (A) 0.8 k/uL (1.0-4.8); Lymphocytes % (A) 10 %; MCHC 29.1 g/dL (31.0-37.0); MCV 68.7 fL (80.0-100.0); Mean Platelet Volume 7.4; Microcytosis Marked; Monocytes # (A) 0.3 k/uL (0-1.0); Monocytes % (A) 4 %; Neutrophils # (A) 6.8 k/uL (1.3-7.7); Neutrophils % (A) 84 %; Platelet Count 269 k/uL (150-450); Poikilocytosis Moderate; RBC 4.05 m/uL (3.80-5.40); RDW 18.7 % (11.5-15.5); WBC 8.1 k/uL (3.8-10.6)
[2022-10-11 18:14] LABS: HGB 8.1 gm/dL (11.4-16.0)
[2022-10-12] MEDS: KETOROLAC 15 MG/ML 1 ML VIAL IVP PRN (03:06)
[2022-10-12] MEDS: ONDANSETRON 4 MG/2 ML VIAL IVP PRN (03:07)
[2022-10-12 03:59] VITALS: BP 143/86; PULSE 86; RESP 15; TEMP 98.6
[2022-10-12 07:21] LABS: Anisocytosis Slight; Basophils % (A) 0 %; Eosinophils % (A) 0 %; HCT 26.2 % (34.0-46.0); HGB 7.8 gm/dL (11.4-16.0); Hypochromasia Marked; Lymphocytes # (A) 0.8 k/uL (1.0-4.8); Lymphocytes % (A) 11 %; MCHC 29.9 g/dL (31.0-37.0); Mean Platelet Volume 7.8; Microcytosis Marked; Monocytes # (A) 0.3 k/uL (0-1.0); Monocytes % (A) 5 %; Neutrophils # (A) 6.1 k/uL (1.3-7.7); Neutrophils % (A) 82 %; Platelet Count 237 k/uL (150-450); Poikilocytosis Moderate; RBC 3.91 m/uL (3.80-5.40); WBC 7.4 k/uL (3.8-10.6)
[2022-10-12] MEDS: LACTATED RINGERS 1,000 ML IV SCH (07:23)
[2022-10-12] MEDS: FLUTICASONE 50MCG/SPRAY NASAL 16GM EA NOSTRIL SCH (07:30)
[2022-10-12] MEDS: PANTOPRAZOLE 40 MG TABLET PO SCH (07:31)
[2022-10-12] MEDS: LORATADINE 10 MG TAB PO SCH (07:31)
[2022-10-12] MEDS: SENNOSIDES-DOCUSATE SODIUM 1 EACH TAB PO SCH (07:31)
[2022-10-12] MEDS: LOSARTAN-HCTZ 50-12.5 MG 1 EACH TAB PO SCH (07:31)
--- NOTE | 2022-10-12 08:45 | P.DS ---
Providers Date of admission: 10/10/22 05:47 Expected date of discharge: 10/12/22 Attending physician: Traci Sal Primary care physician: Alexander Arcos - Discharge Diagnosis(es) (1) Simple endometrial hyperplasia without atypia Current Visit: No Status: Acute (2) Dysfunctional uterine bleeding Current Visit: No Status: Acute Hospital Course: This is a 57-year-old female who presented on 10/10/2022 for total abdominal hysterectomy with bilateral salpingo-oophorectomy due to the structural uterine bleeding and history of simple hyperplasia along with blood loss anemia. course was complicated by symptomatic anemia with a hemoglobin dropping to 6.6 from 8.3 prior to surgery. She was given 1 unit of packed red blood cells and has felt much better since. She is ambulating and passing some flatus but no bowel movement yet. She is tolerating a regular diet. Her nausea and vomiting has gone down. She denies any current dizziness, shortness of breath, or lightheadedness. She does feel well enough to go home at this time. Vital signs are stable. Abdomen is soft with positive bowel sounds 4. Incision is clean dry and intact with georgi in place. Extremities show negative Homans. Impression is status post total abdominal hysterectomy with bilateral septal angle fracture me postoperative day #2, blood loss anemia- status post 1 unit of packed red blood cells. Plan is to discharge home today. She will continue on ibuprofen and/or Tylenol as needed for pain. She will continue her stool softeners until bowel movements are regular. Once she is having regular bowel movements she is encouraged to start on iron supplementation. Routine postoperative instructions are given. She is advised to follow up in the office in approximately 1 week for a postoperative check. She will be given a prescription for ibuprofen 600 mg as needed for pain. She is advised to call the office if she has any further questions or concerns prior to her appointment. Procedures: Total abdominal hysterectomy with bilateral submental oophorectomy on 10/10/2022 Patient Condition at Discharge: Stable Plan - Discharge Summary Discharge Rx Participant: No New Discharge Prescriptions: No Action RX: Omeprazole 20 mg PO BID L.acidoph,Paracasei, B.lactis [Probiotic] 1 each PO DAILY Loratadine [Claritin] 10 mg PO DAILY Losartan/Hydrochlorothiazide [Losartan-Hctz 50-12.5 mg Tab] 1 tab PO DAILY Albuterol Inhaler [Ventolin Hfa Inhaler] 1 - 2 puff INHALATION Q6H PRN PRN Reason: Wheezing Fluticasone Nasal [place] [Flonase Nasal [place]] 1 spray EA NOSTRIL DAILY Discharge Medication List RX: Omeprazole 20 mg PO BID 08/09/16 [History] L.acidoph,Paracasei, B.lactis [Probiotic] 1 each PO DAILY 10/19/18 [History] Loratadine [Claritin] 10 mg PO DAILY 10/19/18 [History] Albuterol Inhaler [Ventolin Hfa Inhaler] 1 - 2 puff INHALATION Q6H PRN 10/09/22 [History] Fluticasone Nasal [place] [Flonase Nasal [place]] 1 spray EA NOSTRIL DAILY 10/09/22 [History] Losartan/Hydrochlorothiazide [Losartan-Hctz 50-12.5 mg Tab] 1 tab PO DAILY 10/09/22 [History] Follow up Appointment(s)/Referral(s): Traci Sal DO [Doctor of Osteopathic Medicine] - 1 Week Activity/Diet/Wound Care/Special Instructions: Activity as tolerated. Diet as tolerated. May shower, but no tub baths for 1 week. No heavy lifting. May drive once reaction time is normal and no narcotic pain medication. Discharge Disposition: HOME SELF-CARE
--- NOTE | 2022-10-14 16:36 | CDI ---
Documentation Clarification Form Date: 10/14/2022 4:12:20 PM From: Catherine Rachel Admit Date: 10/10/2022 5:47:00 AM Patient Name: Tamela Matthews Visit Number: [id number] Discharge Date: 10/13/2022 5:03:00 AM ATTENTION: The Clinical Documentation Specialists (CDI) and [facility] Coding Staff appreciate your assistance in clarifying documentation. Please respond to the clarification below the line at the bottom and electronically sign. The CDI & [facility] Coding staff will review the response and follow-up if needed. Please note: Queries are made part of the Legal Health Record. If you have any questions, please contact the author of this message via ITS. Dr. Traci Sal Blood loss anemia and symptomatic postop anemia is documented in progress note 10/11 and discharge summary 10/12. Additional specificity regarding the acuity of anemia is requested. History/Risk Factors: patient is a 57-year-old female who presented for a total abdominal hysterectomy with bilateral salpingo-oophorectomy due to structural uterine bleeding and history of simple hyperplasia along with blood loss anemia Clinical indicators: patient underwent a total abdominal hysterectomy with bilateral salpingo-oophorectomy. Post op day 1 patient felt more winded, and her pulse ox dropped to the 80s on room air. It is up in to the 90s on O2 cannula. She experienced nausea and vomiting. Agreed to blood transfusion. Transfused 1 U PRBC. Hemoglobin: 10/10: 8.3 10/11: 6.6 Hematocrit: 10/10: 29.1 10/11: 22.7 Treatment: 1 UNIT PRBC Please clarify the acuity of anemia: [ ] Acute blood loss anemia [X ] Acute on chronic blood loss anemia [ ] Unable to determine [ ] Other, please specify MTDD
--- NOTE | 2022-10-14 16:37 | CDI ---
Documentation Clarification Form Date: 10/14/2022 4:24:48 PM From: Catherine Rachel Admit Date: 10/10/2022 5:47:00 AM Patient Name: Tamela Matthews Visit Number: [id number] Discharge Date: 10/13/2022 5:03:00 AM ATTENTION: The Clinical Documentation Specialists (CDI) and [facility] Coding Staff appreciate your assistance in clarifying documentation. Please respond to the clarification below the line at the bottom and electronically sign. The CDI & [facility] Coding staff will review the response and follow-up if needed. Please note: Queries are made part of the Legal Health Record. If you have any questions, please contact the author of this message via ITS. Dr. Traci Sal Your patient has documentation of post op day 1- patient felt more winded, and her pulse ox dropped to the 80s on room air. Based on this information and the findings below, is there an additional diagnosis that is clinically appropriate for this patient? History/Risk Factors: patient is a 57-year-old female who presented for a total abdominal hysterectomy with bilateral salpingo-oophorectomy due to structural uterine bleeding and history of simple hyperplasia along with blood loss anemia Home oxygen: not on home oxygen Clinical Indicators: patient underwent a total abdominal hysterectomy with bilateral salpingo-oophorectomy. Post op day 1 patient felt more winded, and her pulse ox dropped to the 80s on room air. It is up in to the 90s on O2 cannula. Reported no vaginal bleeding. She experienced nausea and vomiting. Agreed to blood transfusion. Transfused 1 U PRBC. Placed on 2-3L nasal cannula Vital signs: respirations 12-19 Pulse oximetry: 69-70 percent Treatment: transfused 1 unit PRBC Continuous Pulse ox O2: 2-3L nasal cannula Is there an additional diagnosis that is clinically appropriate for this patient? [ ] Acute Hypoxic Respiratory Failure (pO2 <60 mm Hg or SpO2 <91% on room air) [X ] Acute Respiratory Distress [ ] Acute Respiratory Insufficiency [ ] Other Diagnosis, please specify [ ] Unable to determine MTDD
== END 2022-10-13 05:03 | disposition home or self-care (01) | DRG 742 ==
LOC: 2ORMAIN 05:47 → 4FBP 09:07
PROVIDERS: ADMIT Obstetrics & Gynecology; ATTEND Obstetrics & Gynecology
PROC: 0UT70ZZ Resection of Bilateral Fallopian Tubes, Open Approach (ICD-10-PCS; principal; 2022-10-10 07:30)
PROC: 0UT20ZZ Resection of Bilateral Ovaries, Open Approach (ICD-10-PCS; principal; 2022-10-10 07:30)
PROC: 0UT90ZZ Resection of Uterus, Open Approach (ICD-10-PCS; principal; 2022-10-10 07:30)
PROC: 30233N1 Transfusion of Nonautologous Red Blood Cells into Peripheral Vein, Percutaneous Approach (ICD-10-PCS; 2022-10-11)
DX: N85.01 Benign endometrial hyperplasia (principal); D62 Acute posthemorrhagic anemia; R06.03 Acute respiratory distress; N93.8 Other specified abnormal uterine and vaginal bleeding; D25.9 Leiomyoma of uterus, unspecified; N83.292 Other ovarian cyst, left side; K21.9 Gastro-esophageal reflux disease without esophagitis; I10 Essential (primary) hypertension; F41.9 Anxiety disorder, unspecified; L29.9 Pruritus, unspecified; Z98.891 History of uterine scar from previous surgery; Z79.899 Other long term (current) drug therapy; Z88.3 Allergy status to other anti-infective agents; Z63.5 Disruption of family by separation and divorce
CPT/HCPCS: 81025; 85025; 86850; 86900; 86901; 86920; 88307

== ENCOUNTER → 2024-02-13 | Outpatient (CLI) | payer BC | LOC: CPPFTMAIN 10:36 | PROVIDERS: ATTEND Family Medicine | DX: R07.89 Other chest pain | CPT/HCPCS: 94060; 94726; 94729 ==